=== PATIENT | male | born 1995 | race Hispanic/Latino ===

== ENCOUNTER 2019-03-07 17:19 | Emergency (ER) | payer SELFPAY ==
[2019-03-07] MEDS ORDERED: SULFAMETHOX-TMP DS 800/160 TAB ONE (18:13)
[2019-03-07] MEDS ORDERED: CEPHALEXIN 500 MG CAPSULE ONE (18:13)
[2019-03-07] MEDS ORDERED: HYDROCODONE/ACETAMINOPHEN 10/325 MG TAB ONE (18:14)
== END 2019-03-07 18:43 | disposition home or self-care (01) ==
LOC: EDH 17:19
DX: L03.116 Cellulitis of left lower limb (principal)